=== PATIENT | female | born 1960 ===

== ENCOUNTER 2019-05-13 16:58 | Outpatient (RCR) | payer OTHER, SELFPAY ==
--- NOTE | 2019-05-14 13:41 | PTOPEVAL ---
Thank you for referring this patient to [facility]. Please review, sign, date and return this plan of care CRYSTAL. I agree with and certify that the following plan of care is medically necessary. Referring Physician Date Admitting Provider: Attending Provider: PHYSICIAN NOT ON STAFF Referring Provider: *PT Outpatient Evaluation Start: 05/13/19 17:10 Freq: Status: Active Protocol: Document 05/13/19 17:15 MOJGAN (Rec: 05/13/19 18:04 [id number]) Therapy Assessment Status Assessment Status Assessment Status Evaluation Evaluation Information Problem Diagnosis bilateral TKA TKA Onset 05/06/19 Subjective Information Pt. underwent bilateral TKA on Query Text:As Reported By Patient/ 05/06/19. [facility]. She reports that she has been exercising twice a day since returning home. She reports that pain is minimal at rest but increases with activity. She reports that her goal for therapy is to regain normal movement of the right knee. Prior Level of Function Activity Level (Last 3 Months) Hand Dominance Left Activity of Daily Living Ability Independent Indoor/Home Mobility Independent Community Mobility Independent Stairs Ability Independent Functional Cognition (Planning, Shopping Independent , Taking Medications) Cooking Yes Cleaning Yes Laundry Yes Shopping Yes Driving Yes Comments Additional Prior Level of Function Pt. reports that she works at [employer] and is on her feet most of the day. She reports that her goal is to be able to return to her normal work duties. Pain Assessment Pain Scale Pain Scale Used Numeric (1 - 10) Self Report Pain Assessment Bilateral Knee(s) Reported Pain Level 4 Current Pain Intensity 4 Lowest Pain Intensity 0 Greatest Pain Intensity 9 Pain Score Pain Score 4: Self Report Lower Extremity Range of Motion General Lower Extremity Range of Motion Gross Lower Extremity Range of Motion Pt. presents with 2-78 degrees Comments right knee AROM and 5-95 degrees left knee A
--- NOTE | 2019-06-12 07:26 | PTOPEVAL ---
Thank you for referring this patient to [facility]. Please review, sign, date and return this plan of care CRYSTAL. I agree with and certify that the following plan of care is medically necessary. Referring Physician Date Admitting Provider: Attending Provider: PHYSICIAN NOT ON STAFF Referring Provider: *PT Outpatient Evaluation Start: 05/13/19 17:10 Freq: Status: Active Protocol: Document 06/10/19 17:00 MOJGAN (Rec: 06/12/19 07:25 [email or web address]) Therapy Assessment Status Assessment Status Assessment Status Re-evaluation Evaluation Information Problem Diagnosis bialteral TKA Subjective Information Pt. reports that she is Query Text:As Reported By Patient/ walking without an AD. She Family reports that she still has pain and swellilng but is getting better. She continues to express pain in regards to standing endurance and being able to stand long enough to complete her job related duties. She reports that she can only currently stand for about 15-20 minute and needs to be able to stand for hours. She reports that she would like to continue to improve her strength. Pain Assessment Timing of Pain Assessment Timing of Pain Assessment Pre-Treatment Pain Scale Pain Scale Used Numeric (1 - 10) Self Report Pain Assessment Bilateral Knee(s) Reported Pain Level 3 Pain Frequency Intermittent Pain Score Pain Score 3: Self Report Lower Extremity Range of Motion General Lower Extremity Range of Motion Gross Lower Extremity Range of Motion right knee AROM 3-121, left Comments knee AROM 0-120 Lower Extremity Muscle Strength Testing General Lower Extremity Strength Gross Lower Extremity Strength bialteral hip felxion 4+/5, bilateral knee flexion 4+/5, bilateral knee extension 4+/5, bilateral ankle dorsiflexion 5/5 Gait Assessment Gait Assessment Additional Ambulation Comments Pt. ambulates over level surface w/o an AD demonstrate limited hip flexion and slight right trendelenburg. Stair Climbing Assessment Stair Climbing Assessment Stair Climbing Comments Pt. navigates steps with continued step to pattern. PT Clinical Summary Clin[facility]
--- NOTE | 2019-06-20 13:29 | PCPTNOTE ---
Patient called and cancelled treatment today. CLAUDIA
== END 2019-07-04 17:16 | disposition home or self-care (01) ==
LOC: CHSPT 16:58
DX: Z47.1 Aftercare following joint replacement surgery (principal); Z96.652 Presence of left artificial knee joint; M17.0 Bilateral primary osteoarthritis of knee
CPT/HCPCS: 97016; 97110; 97161; 97530

== ENCOUNTER 2021-11-21 15:47 | Emergency (ER) | payer OTHER, SELFPAY ==
[2021-11-21 15:51] VITALS: BP 133/73; PULSE 100; RESP 20; TEMP 36.8; O2SAT 96
[2021-11-21] MEDS: LIDO 1%/EPINEPHRINE 1:100,000 20 ML VIAL 10 ML INFILTRATE (16:55)
[2021-11-21] MEDS: HYDROcodone/acetaminophen (*CRX) 5-325 MG TABLET 1 TAB PO (16:56)
--- NOTE | 2021-11-21 17:11 | PC.NURSE ---
area cleansed, injected area with lidocaine
--- NOTE | 2021-11-21 17:15 | ED.GENADULT ---
HPI - General Adult General Chief complaint: Skin/Abscess/Foreign Body Stated complaint: cellulitis face History of Present Illness HPI narrative: This is a 61-year-old female history of abscesses present ED with a facial abscess. Patient said she had a small pimple left forearm several days ago. Continue grown became painful. She did go to an urgent care where she was treated with amoxicillin. She noticed some regression of the erythema around her chin however she now has 2 areas of fluctuance and drainage to the right side of her chin. She denies systemic signs of illness such as fever, chills, nausea vomiting or diarrhea. She notices no swelling in her mouth, sensation of throat closure, inability to secretions. Related Data Allergies Allergy/AdvReac Type Severity Reaction Status Date / Time No Known Allergies Allergy Unverified 12/20/14 17:50 Review of Systems Constitutional: Constitutional: Denies fever(s) Eyes: Eyes: Denies change in vision ENT: Denies dysphagia Cardiovascular: Cardiovascular: Denies chest pain Respiratory: Respiratory: Denies chest congestion Gastrointestinal: Gastrointestinal: Denies abdominal pain Genitourinary: Genitourinary: Denies abnormal vaginal bleeding Musculoskeletal: Musculoskeletal: Denies back pain Integumentary/Breasts: Skin/Breast: Denies breast pain Neurologic: Denies confusion Psychiatric: Psychiatric: Denies anxiety Endocrine: Endocrine: Denies excessive sweating Allergic/Immunologic: Allergic/Immunologic: Denies lip swelling PMFSH Past Medical History Medical History (Updated 11/21/21 @ 17:24 by Ravi Forde MD) Breast abscess Social History Social History Smoking status: Never smoker Exam Narrative: Patient is sitting in bed in no apparent distress. She is polite and friendly during the interview. Const: General: healthy appearing and no acute distress Nutritional Appearance: well nourished Orientation/consciousness: patient oriented x3 HENMT: Face and sinus: normal facial exam ( Patient has erythema in an area of fluctuance to the right of her chin.) Mouth: Yes Normal oral and palatal mucosa present Teeth and gingiva: dentition normal Eyes: Conjunctivae: conjunctivae normal Neck: Neck: normal visual inspection Chest: Chest palpation & inspection: normal inspection of the chest Resp: Effort & Inspection: normal respiratory effort Cardio: Rate: regular rate GI: GI Palp: Yes Soft to palpation, No Tenderness to palpation present (GI) and No Guarding due to palpation present (GI) Back/Spine/Pelvis: Back: no CVA tenderness Skin: General skin exam: normal color Neuro: General: patient oriented x3 Cranial nerves: Yes Nystagmus not present Speech: normal speech Extrem: General: normal to inspection Psych: Mental Status: mental status grossly normal Affect: normal affect Attitude: cooperative Course Vital Signs Vital signs: Vital Signs Temperature 98.3 F 11/21/21 15:51 Pulse Rate 100 11/21/21 15:51 Respiratory Rate 20 11/21/21 15:51 Blood Pressure 133/73 11/21/21 15:51 Pulse Oximetry 96 11/21/21 15:51 Oxygen Delivery Room Air 11/21/21 15:51 Temperature 98.3 F 11/21/21 15:51 Pulse Rate 100 11/21/21 15:51 Respiratory Rate 20 11/21/21 15:51 Blood Pressure 133/73 11/21/21 15:51 Pulse Oximetry 96 11/21/21 15:51 Oxygen Delivery Room Air 11/21/21 15:51 Medical Decision Making MDM Narrative Medical decision making narrative: This is a 61-year-old female with an abscess and surrounding cellulitis to the right and the lower chin. An ultrasound was used to identify 2 small pockets of fluid. An incision and drainage was performed which expressed about 5 cc of purulence. The patient was on a course of amoxicillin for 4 days. They have been instructed to continue the amoxiciilin and Bactrim will be added to cover for
[2021-11-21 17:37] VITALS: BP 130/88; PULSE 80; RESP 20; TEMP 36.6; O2SAT 98
--- NOTE | 2021-11-21 17:50 | PC.NURSE ---
dry gauze dressing applied after MD did I&D
== END 2021-11-21 17:50 | disposition home or self-care (01) ==
PROVIDERS: Emergency Provider Emergency Medicine
DX: L02.91 Cutaneous abscess, unspecified (principal)
CPT/HCPCS: 99283; A9270

== ENCOUNTER 2021-11-25 13:59 | Outpatient (CLI) | payer OTHER, SELFPAY ==
[2021-11-25 14:09] LABS: Hematocrit 42.3 % (35.0-49.0); Hemoglobin 14.1 g/dL (12.0-15.0); Mean Corpuscular HGB Conc 33.3 g/dL (32.0-36.0); Mean Corpuscular Hemoglobin 30.3 pg (27.0-31.0); Mean Corpuscular Volume 90.8 fL (78.0-102.0); Mean Platelet Volume 10.4 fl (9.2-11.8); Platelet Count Result 231 K/mm3 (150-420); Red Blood Count 4.66 M/mm3 (4.20-5.40); Red Cell Distribution Width 12.9 % (11.6-14.4); White Blood Count 5.8 K/mm3 (4.8-10.8)
[2021-11-25 14:40] LABS: Alanine Aminotransferase 21 U/L (14-59); Albumin Level 3.6 g/dL (3.4-5.0); Alkaline Phosphatase 120 U/L (46-116); Anion Gap 6 mmol/L (8-16); Aspartate Amino Transferase 19 U/L (15-37); Bilirubin,Total 0.5 mg/dL (0.00-1.00); Blood Urea Nitrogen 16 mg/dL (7-18); Calcium 9.5 mg/dL (8.5-10.1); Carbon Dioxide 29 mmol/L (21-32); Chloride 105 mmol/L (98-108); Cholesterol 241 mg/dL (0-200); Estimated Glomerular Filt Rate 45; Glucose 95 mg/dL (70-99); HDL Direct 54 mg/dL (40-60); LDL Cholesterol Calculated 168 mg/dL (<130); Osmolality Calculated 291 mOsm/kg (285-295); Potassium 4.5 mmol/L (3.5-5.1); Sodium 140 mmol/L (136-145); Total Protein 7.5 g/dL (6.4-8.2); Triglycerides 96 mg/dL (0-150)
== END 2021-11-25 14:00 | disposition home or self-care (01) ==
LOC: CHSLAB 14:01
PROVIDERS: PCP Family Medicine; Visit Provider Family Medicine
DX: Z00.00 Encounter for general adult medical examination without abnormal findings (principal)
CPT/HCPCS: 36415; 80053; 80061; 85027